=== PATIENT | male | born 1980 | race Caucasian/White ===

== ENCOUNTER 2024-02-14 01:13 | Day surgery (SDC) | payer BC, SELFPAY ==
[2024-02-08 16:24] VITALS: BMI 33.8
--- NOTE | 2024-02-08 16:31 | PC.NURSE ---
Report to the Outpatient Waiting Room, entrance under the green pavilion located off [facility], at time _1230_ on date _[id number]_. Planned Procedure Time: _1330_. Time changes happen often and if your time is changed the preop area will call you the afternoon before. - You and your visitor will be asked to self-screen and do not enter if you have any COVID symptoms. - A mask is optional within the hospital at this time. Ok to eat breakfast and a light lunch. Take the following medications with a SIP of water the morning of surgery: ____None DO NOT STOP ANY OF YOUR OTHER PRESCRIPTION MEDICATIONS PRIOR TO SURGERY ?EXCEPT THE FOLLOWING Medications to discontinue per physician None Date to take last dose Please no make-up, nail maltese, hairspray, perfume, deodorant, or body powder the day of surgery. No jewelry (including any body piercings) or valuables the day of surgery, leave them at home. Please take a shower or bath the night before, or the morning of, surgery with an antibacterial soap. Wear comfortable, loose fitting clothing. - Jewelry must be removed prior to entering the operating room. Rings and piercings that are not removed may be cut off. - The hospital will not accept responsibility for valuables. - Please leave all valuables, including medications, at home the day of surgery. If you or anyone in your household have experienced Covid symptoms in the past week, please notify your surgeon or the nurse liaison at the phone number below for possible testing. Telephone instructions given to __Kent___and asked if any additional questions and then verbalized understanding. Patient advised to call surgeon office or pre surgery nurse liaison [phone] if any additional questions.
[2024-02-14 12:50] VITALS: BP 118/65; PULSE 71; RESP 18; TEMP 36.3; O2SAT 98; BMI 26.9
--- NOTE | 2024-02-14 15:05 | WPDHPUPDATE1 ---
History and Physical Update Update Date/Time: 02/14/24 15:05 History and Physical has been reviewed, including an updated exam of the patient. There are NO changes in the patient's condition. Risks, benefits, and alternatives have been discussed and questions answered. Patient agrees to proceed with procedure.
[2024-02-14 15:28] VITALS: BP 116/70; PULSE 62; RESP 16; O2SAT 97
[2024-02-14] MEDS: BUPivacaine HCL 0.5% PF 30 ML VIAL 5 ML INFILTRATE (15:38)
[2024-02-14 15:39] VITALS: BP 123/65; PULSE 69; RESP 20; O2SAT 98
[2024-02-14] MEDS: LIDO 1%/EPINEPHRINE 1:100,000 20 ML VIAL 5 ML INFILTRATE (15:39)
[2024-02-14 15:49] VITALS: BP 118/57; PULSE 72; RESP 20; O2SAT 98
[2024-02-14 15:59] VITALS: BP 109/80; O2SAT 98
--- NOTE | 2024-02-14 16:06 | P.OPB_ITS ---
Procedure Note - Brief Procedure Note - Brief Date of procedure: 02/14/24 ruptured inclusion cyst left posterior neck Post-op diagnosis: Same Procedure performed: Excision left posterior neck ruptured inclusion cyst with 3cm intermediate la yered wound closure Surgeon: Johnathan Gallardo MD Anesthesia: local Estimated blood loss (mL): 5 Drains: No Packing: No Pathology: Yes (cyst sent to pathology) Complications: No immediate complications Condition: Stable Disposition: PACU
[2024-02-14 16:09] VITALS: BP 135/65; PULSE 70; RESP 16; O2SAT 100
--- NOTE | 2024-02-15 16:56 | P.OP_ITS ---
Procedure Note - Detailed Date of Procedure 02/14/24 Pre-op Diagnosis Ruptured left posterior neck inclusion cyst. Post-op Diagnosis Same Procedure Performed Excision of left posterior neck ruptured inclusion cyst with 3cm intermediate layered wound closure. Surgeon Johnathan Gallardo MD Anesthesia Local Indications Patient is a 44-year-old left posterior neck inclusion cyst which is had episodes of infection and rupture. It is not currently infected and he presents now for excision of the cyst. Findings The cyst measured approximately [id number]. It was sent to pathology for examination. The incision was closed with a 3cm intermediate layered wound sven sure Description of Procedure After informed consent was obtained patient was brought to the operating room and was placed in the right lateral decubitus position on the operating table. There the left posterior neck region was then prepped and draped usual sterile fashion. a time-out was then performed correctly identifying the patient as well as the procedure to be performed verifying site marking. No IV antibiotics start is no IV was placed. 1% lidocaine mixed with 0.5% Marcaine with epinephrine was injected around the cyst for local anesthetic effect. I then made a transverse incision with a scalpel deeply down through the dermis of the skin. Once into the subcutaneous tissues a completely excised out the ellipse of tissue with the Wilson is completely within the excised ellipse of tissue. The cyst measured approximately [id number]. It was sent to pathology for examination. Hemostasis in the incision was achieved electrocautery. It was then irrigated sterile saline solution. An intermediate layered wound closure was then performed consisting of layers of interrupted 2-0 Vicryl suture followed by layers of interrupted 3-0 Vicryl sutures in the deep dermal layer. The skin edges were then approximated utilizing a running subcuticular 4 Monocryl suture. Incision was then cleaned and then skin glue was applied. The length of the intermediate layered wound closure was 3cm. The patient tolerated the procedure well no complications. All sponges, needles, and instrument counts were correct at the end procedure. EBL was _5__cc. The patient was awakened and taken to recovery in stable and satisfactory condition. Implants none Estimated Blood Loss 5 Drains No Packing No Pathology Yes ( cyst sent to pathology) Complications No immediate complications Condition Stable Disposition PACU [facility] Billing Surgery - Charge Forward: Surgery Billing
== END 2024-02-14 16:18 | disposition home or self-care (01) ==
PROVIDERS: PCP Physician Assistant Medical; Visit Provider Surgery
PROC: (CPT 11422; principal; 2024-02-14 13:30)
DX: L90.5 Scar conditions and fibrosis of skin (principal)
CPT/HCPCS: 11422; 12042; 88305; A9270

== ENCOUNTER 2024-06-19 10:07 | Emergency (ER) | payer BC, SELFPAY ==
[2024-06-19 10:21] VITALS: BP 122/67; PULSE 78; RESP 18; TEMP 36.6; O2SAT 97
[2024-06-19 10:22] VITALS: BP 122/67; PULSE 78; RESP 18; TEMP 36.6; O2SAT 97
--- NOTE | 2024-06-19 10:23 | ED_ITS ---
HPI - URI/Sore Throat General Chief Complaint: Upper Respiratory Infection Stated Complaint: strep symptoms and head pressure Time Seen by Provider: 06/19/24 10:14 Source: patient Mode of arrival: ambulatory Limitations: no limitations History of Present Illness HPI Narrative: Patient is a 44-year-old male who presents with Headache, sore throat, sinus pressure started last night. Strep has been going around his house. Denies any fever, chills, nausea, vomiting, diarrhea. Has not taken anything for symptoms. Related Data Home Medications Medication Instructions Recorded Confirmed No Home Medications 02/08/24 06/19/24 Allergies Allergy/AdvReac Type Severity Reaction Status Date / Time No Known Allergies Allergy Verified 06/19/24 10:22 Review of Systems Review of Systems: All systems reviewed & are unremarkable except as noted in HPI and below Constitutional: Constitutional: Denies body ache(s), Denies chills, Denies fatigue, Denies fever(s), Reports headache(s), Denies malaise and Denies weakness Eyes: Eyes: Denies blurry vision, Denies itchy eyes and Denies loss of vision ENT: Denies otalgia, Denies headache(s), Reports nasal congestion, Denies sinus pain, Reports sinus pressure and Reports sore throat Cardiovascular: Cardiovascular: Denies chest pain, Denies irregular heart rhythm and Denies dyspnea Respiratory: Respiratory: Denies cough and Denies dyspnea Gastrointestinal: Gastrointestinal: Denies abdominal pain, Denies diarrhea, Denies nausea and Denies vomiting Musculoskeletal: Musculoskeletal: Denies back pain, Denies myalgias and Denies arthralgias Integumentary/Breasts: Skin/Breast: Denies pruritus and Denies rash Neurologic: Denies headache(s), Denies loss of vision and Denies weakness Psychiatric: Psychiatric: Reports no additional psychiatric complaints Endocrine: Endocrine: Denies fatigue Allergic/Immunologic: Allergic/Immunologic: Denies itchy eyes PMFSH Past Medical History Medical History Anxiety Surgical History Surgical History H/O vasectomy History of removal of cyst Hx of excision of mass Excision left posterior neck ruptured inclusion cyst with 3cm intermediate layered wound closure 7/29/24 Family History Family History Mother Hypothyroidism Social History Social History Smoking packs per day: 1 Smoking cigarettes per day: 20.0 Years smoked: 15 Smoking pack-years: 15.00 Smoking status: Former smoker Smokeless tobacco user: chewing tobacco Smoking end date: 02/07/18 Alcohol intake: current Drinks per week: 5 Substance use: never Substance use type: does not use Lack of Transportation: No Lack of Food: Never True Current Housing: I Have Housing Concerned About Future Housing: No Difficulty Paying Gas/Electric Bills: No Difficulty Paying for Meds: No Currently Unemployed: No Difficulty w/ Childcare or Family Care: No Living arrangements: with family Occupation/Education: occupation Gender identity (if verbalized by the patient): Male Spiritual care concerns: No Agree to blood products: Yes Comments At time of signature, agree with nursing past medical, surgical, social and family history. There is no relevant family history pertinent to the presenting complaint. Exam Const: General: cooperative, healthy appearing, comfortable, no acute distress and well nourished Nutritional Appearance: well nourished Orientation/consciousness: patient oriented x3 Limitations: no limitations HENMT: Head: normal to inspection, normocephalic and atraumatic Ears: hearing grossly normal bilaterally, external ears normal, TM's normal bilaterally, EAC's normal and no periauricular adenopathy Face/Nose/Sinus: Normal external nose present, Abnormal mucous membranes and turbinates present erythematous bilateral and diffuse, normal facial exam, sinuses nontender and face symmetric Face and sinus: normal facial exam, sinuses nontender and face symmetric Mouth: Yes Normal oral and palatal mucosa present, Yes lip normal, Yes tongue normal, Yes Normal salivary glands and ducts present, Yes oropharynx normal and Yes moist mucous membranes Teeth and gingiva: dentition normal Throat: posterior oropharynx normal, tonsils normal and uvula midline Eyes: General: appearance normal, both eyes and all related structures Alignment and Position: alignment normal and position normal Periorbital: periorbital findings normal Eyelids: eyelids normal Pupils: Equal, round and reactive pupils present Neck: Neck: normal visual inspection, full ROM, no lymphadenopathy and supple Chest: Chest palpation & inspection: normal inspection of the chest and normal palpation of entire chest wall Resp: Effort & Inspection: normal respiratory effort and able to speak in complete sentences Auscultation: clear to auscultation bilaterally, no crackles, no rales, no rhonchi and no wheezes Cardio: Rate: regular rate Rhythm: regular rhythm Heart sounds: S1 normal heart sound present and S2 normal heart sound present GI: Inspection: normal to inspection Skin: General skin exam: normal color and no rashes or lesions noted Neuro: General: patient oriented x3 and moves all extremities Cranial nerves: Yes Equal, round and reactive pupils present Speech: normal speech Gait exam (Neuro): Normal gait present Extrem: General: normal to inspection, full ROM and no edema Psych: Appearance: grossly normal and well kempt Mental Status: mental status grossly normal Speech and movement: Normal speech and movement present Affect: normal affect Attitude: cooperative Thought process: Normal thought process present Course Course Emergency Course: Patient is aware of diagnosis, understands and agrees to treatment plan. Anticipatory guidance given. Patient agrees to follow-up as directed and is aware of reasons to seek care at the emergency department. Portions of this record may have been created with voice recognition software Level of Care: Express Care Visit Vital Signs Vital signs: Vital Signs Temperature 36.6 C 06/19/24 10:21 Pulse Rate 78 06/19/24 10:21 Respiratory Rate 18 06/19/24 10:21 Blood Pressure 122/67 06/19/24 10:21 Pulse Oximetry 97 06/19/24 10:21 Oxygen Delivery Room Air 06/19/24 10:21 Temperature 36.6 C 06/19/24 10:22 Pulse Rate 78 06/19/24 10:22 Respiratory Rate 18 06/19/24 10:22 Blood Pressure 122/67 06/19/24 10:22 Pulse Oximetry 97 06/19/24 10:22 Oxygen Delivery Room Air 06/19/24 10:22 Reviewed MDM - URI/Sore Throat MDM Narrative Medical decision making narrative: Discharge instructions reviewed with patient, as well as provided in writing per nursing staff. The instructions also include specific and strict return/GO TO THE ER as well as f/u information. All questions have been answered, and the patient deny any further questions with discharge and discharge plan. Differential diagnosis considered: Abdullahi virus, strep pharyngitis, allergic rhinitis, upper respiratory tract infection, sinusitis, rhinosinusitis, nasopharyngitis. viral pharyngitis, otitis media, otitis externa, otitis effusion, foreign body, cerumen impaction, viral syndrome, and influenza.? Exam findings show no acute concerns or changes; patient is non-toxic appearing and is in no distress.? Patient is appropriate for outpatient treatment and follow- up.? Medical Records Attestation: I reviewed the patient's medical records. Lab Data Attestation: I reviewed the patient's lab results. Labs: Lab Results 06/19/24 Range/Units 10:36 POC Grp A Strep Screen Negative (Negative) Discharge Plan Discharge Clinical Impression: Upper respiratory infection Qualifiers: URI type: unspecified viral URI Qualified Code(s): J06.9 - Acute upper respiratory infection, unspecified Patient Disposition: Home, Self-Care Condition: Stable Instructions: Upper Respiratory Infection (ED) Additional Instructions: Your rapid strep swab was negative today at [facility]. A throat culture will be sent to the laboratory for further testing. If the test is positive, you will receive a phone call within 48 hours and an appropriate antibiotic will be ini tiated at that time. Your symptoms are likely due to a viral illness, which is not treated with antibiotics. Viral symptoms can be present for up to a few weeks. -Alternate Tylenol and Motrin per package directions for fever or pain. -Antihistamine medication such as Benadryl/Zyrtec at night and Claritin/Nicole during the day can help improve symptoms. -Use Flonase twice a day for 5 days then daily to help reduce the inflammation and dry up your sinuses. -You can also use Sudafed behind the pharmacy counter(12 or 24 hour). Be sure to drink plenty of water with these medications at least 8 ounces with every dose and it is important to drink 8 to 10 glasses of water per day. Water is a natural decongestant -Eat and drink things that are easy to swallow, like tea or soup, or popsicles. -Oral rinses such as: Salt water gargles and/or may use topical anesthetic (eg. Chloraseptic spray) or lozenges to relieve dryness or throat pain). -Frequent hand washing or hand obstetrics teacher is one of the best ways to prevent spread of infection. -Using a vaporizer or humidifier at night will also help thin secretions and help with coughing up phlegm. -Follow up with primary care provider in 3-5 days if condition is not improving - For new or worsening symptoms go directly to the nearest ER Prescriptions: No Action No Home Medications Follow-up/Referrals: Negrito Reed MD [Physician] - 3 Days UNKNOWN,DOCTOR [Primary Care Provider] - Stand Alone Forms: Work/School Release IP Time of Disposition: 10:37
[2024-06-19 17:03] LABS: EDSTREPNEGPOS1 Negative (Negative)
== END 2024-06-19 10:41 | disposition home or self-care (01) ==
PROVIDERS: Emergency Provider Nurse Practitioner Family
DX: J06.9 Acute upper respiratory infection, unspecified (principal); F17.220 Nicotine dependence, chewing tobacco, uncomplicated; Z98.52 Vasectomy status
CPT/HCPCS: 87081; 87880; 99213; G0463